=== PATIENT | female | born 1970 | race Caucasian/White ===

== ENCOUNTER 2022-04-20 11:02 | Emergency (ER) | payer OTHER ==
[~2022-04-20] VITALS: Ht 162.6 cm; Wt 90.7 kg
[2022-04-20 12:16] LABS: BASOPHILS ABSOLUTE AUTO 0.04 K/mm3 (0.00-0.23); BASOPHILS PERCENT AUTO 0 % (0-2); EOSINOPHILS ABSOLUTE AUTO 0.08 K/mm3 (0.00-0.68); EOSINOPHILS PERCENT AUTO 1 % (0-6); Hematocrit 39.2 % (33.0-51.0); Hemoglobin 13.3 g/dL (11.5-16.0); IMMATURE GRAN ABSOLUTE AUTO 0.04 K/mm3 (0.00-0.10); IMMATURE GRAN PERCENT AUTO 0 % (0-1); LYMPHOCYTES PERCENT AUTO 3 % (21-46); MONOCYTES ABSOLUTE AUTO 0.54 K/mm3 (0.16-1.47); MONOCYTES PERCENT AUTO 6 % (4-13); Mean Corpuscular HGB 30.9 pg (26.0-34.0); Mean Corpuscular HGB Conc 33.9 g/dL (31.5-36.5); Mean Corpuscular Volume 91 fL (80-100); Mean Platelet Volume 9.3 fL (9.1-12.4); NEUTROPHILS ABSOLUTE AUTO 8.38 K/mm3 (1.96-9.15); NEUTROPHILS PERCENT AUTO 89 % (41-73); Platelet Count 292 K/mm3 (150-400); RDW Coefficient Variation 13.2 % (11.7-14.2); RDW Standard Deviation 43.8 fL (35.1-46.3); White Blood Cell Count 9.38 K/mm3 (4.00-11.30)
[2022-04-20 12:41] LABS: Albumin/Globulin Ratio 1.1 (0.8-1.8); Bilirubin, Total 0.3 mg/dL (0.1-1.0); Bun/Creatinine Ratio 24.7 (12.0-20.0); Calcium, Blood 8.8 mg/dL (8.5-10.1); Creatinine, Blood 0.65 mg/dL (0.40-1.00); Globulin, Blood 3.5 g/dL (2.2-4.0); Potassium, Blood 4.3 mmol/L (3.5-5.5); Total Protein, Blood 7.5 g/dL (6.4-8.2)
[2022-04-20] MEDS ORDERED: CYCL10 PO (14:06)
== END 2022-04-20 14:14 | disposition home or self-care (01) ==
LOC: ER 11:02
PROVIDERS: Physician Assistant
DX: R51.9 Headache, unspecified (principal); Z79.899 Other long term (current) drug therapy
CPT/HCPCS: 70450; 80053; 85025; 93005; 93010; J0780; J1100; J1200; J7030

== ENCOUNTER 2022-09-11 16:08 | Emergency (ER) | payer OTHER ==
[~2022-09-11] VITALS: Ht 162.6 cm; Wt 90.7 kg
[~2022-09-11 16:08] MED LIST: CYCL10 PO
[2022-09-11 16:33] LABS: BASOPHILS ABSOLUTE AUTO 0.05 K/mm3 (0.00-0.23); BASOPHILS PERCENT AUTO 0 % (0-2); EOSINOPHILS ABSOLUTE AUTO 0.17 K/mm3 (0.00-0.68); EOSINOPHILS PERCENT AUTO 2 % (0-6); Hematocrit 38.7 % (33.0-51.0); Hemoglobin 13.3 g/dL (11.5-16.0); IMMATURE GRAN ABSOLUTE AUTO 0.06 K/mm3 (0.00-0.10); IMMATURE GRAN PERCENT AUTO 1 % (0-1); LYMPHOCYTES ABSOLUTE AUTO 3.31 K/mm3 (0.84-5.20); LYMPHOCYTES PERCENT AUTO 28 % (21-46); MONOCYTES ABSOLUTE AUTO 0.62 K/mm3 (0.16-1.47); MONOCYTES PERCENT AUTO 5 % (4-13); Mean Corpuscular HGB Conc 34.4 g/dL (31.5-36.5); Mean Corpuscular Volume 90 fL (80-100); Mean Platelet Volume 9.5 fL (9.1-12.4); NEUTROPHILS ABSOLUTE AUTO 7.45 K/mm3 (1.96-9.15); NEUTROPHILS PERCENT AUTO 64 % (41-73); Platelet Count 301 K/mm3 (150-400); RDW Coefficient Variation 13.6 % (11.7-14.2); RDW Standard Deviation 44.7 fL (35.1-46.3); Red Blood Cell Count 4.29 M/mm3 (3.80-5.20); White Blood Cell Count 11.66 K/mm3 (4.00-11.30)
[2022-09-11 16:45] LABS: International Normalized Ratio 0.93; Prothrombin Time Results 9.8 Sec (9.7-11.5)
[2022-09-11 16:53] LABS: Albumin, Blood 3.5 g/dL (3.4-5.0); Bilirubin, Total 0.1 mg/dL (0.1-1.0); Bun/Creatinine Ratio 26.2 (12.0-20.0); Calcium, Blood 8.8 mg/dL (8.5-10.1); Creatinine, Blood 0.69 mg/dL (0.40-1.00); Globulin, Blood 3.4 g/dL (2.2-4.0); Potassium, Blood 3.7 mmol/L (3.5-5.5); Total Protein, Blood 6.9 g/dL (6.4-8.2)
[2022-09-11] MEDS ORDERED: HYDR1TAB94 PO (19:22)
== END 2022-09-11 19:42 | disposition home or self-care (01) ==
LOC: ER 16:08
PROVIDERS: Student in an Organized Health Care Education/Training Program
DX: S01.81XA Laceration without foreign body of other part of head, initial encounter (principal); S01.01XA Laceration without foreign body of scalp, initial encounter; M54.2 Cervicalgia; M79.642 Pain in left hand; F17.210 Nicotine dependence, cigarettes, uncomplicated; Z88.5 Allergy status to narcotic agent; V49.49XA Driver injured in collision with other motor vehicles in traffic accident, initial encounter; Y92.411 Interstate highway as the place of occurrence of the external cause
CPT/HCPCS: 36415; 70450; 71045; 72125; 72170; 80053; 85025; 85610; 90714; 93005; 93010; A9270; J1170; J1885; J2405

== ENCOUNTER → 2022-11-09 | Outpatient (CLI) | payer OTHER ==
[~2022-11-09] MED LIST changes: +HYDR1TAB94 PO
[2022-11-19 12:09] LABS: HPV 16 Negative (Negative); HPV 18 Negative (Negative); HPV OTHER HR TYPES Negative (Negative)
== END ==
LOC: LAB 11:17 → LAB SHORT 11:17
PROVIDERS: Physician Assistant
DX: Z12.4 Encounter for screening for malignant neoplasm of cervix (principal)
CPT/HCPCS: 87624; G0145

== ENCOUNTER 2025-10-19 09:53 | Observation (INO) | payer OTHER ==
[~2025-10-19] VITALS: Ht 162.6 cm; Wt 86.4 kg
[~2025-10-19 09:53] MED LIST changes: +ACET500 PO; +IBUP600 PO; +LIDO700A20 TOP; +ONDA4 PO
[2025-10-19 10:43] LABS: Alanine Aminotransfer (ALT/SGP 213.0 U/L (12-78); Albumin, Blood 3.8 g/dL (3.4-5.0); Albumin/Globulin Ratio 1.0 (0.8-1.8); Anion Gap 14.0 mmol/L (3-11); Aspartate Aminotrans (AST/SGOT 203.0 U/L (12-37); Bilirubin, Total 1.0 mg/dL (0.1-1.0); Blood Urea Nitrogen 7.0 mg/dL (8-24); CO2, Blood 22.0 mmol/L (21-32); Calcium, Blood 9.5 mg/dL (8.5-10.1); Chloride, Blood 98.0 mmol/L (98-108); Creatinine, Blood 0.6 mg/dL (0.40-1.00); Globulin, Blood 4.0 g/dL (2.2-4.0); Glucose, Blood 96.0 mg/dL (70-99); Potassium, Blood 5.2 mmol/L (3.5-5.5); Sodium, Blood 129.0 mmol/L (136-145); Total Protein, Blood 7.8 g/dL (6.4-8.2)
[2025-10-19] MEDS ORDERED: Ondansetron HCl 2 MG / ML 2ML Vial IV ONE (10:50)
[2025-10-19] MEDS ORDERED: HYDROmorphone HCl/Pf 1MG SYR IV ONE (10:50)
[2025-10-19] MEDS ORDERED: NS 1,000 ML IV SCH ×2 (10:50→14:35)
[2025-10-19 11:20] LABS: BASOPHILS ABSOLUTE AUTO 0.06 K/mm3 (0.00-0.23); BASOPHILS PERCENT AUTO 1 % (0-2); EOSINOPHILS ABSOLUTE AUTO 0.02 K/mm3 (0.00-0.68); EOSINOPHILS PERCENT AUTO 0 % (0-6); Hematocrit 43.2 % (33.0-51.0); Hemoglobin 15.1 g/dL (11.5-16.0); IMMATURE GRAN ABSOLUTE AUTO 0.04 K/mm3 (0.00-0.10); IMMATURE GRAN PERCENT AUTO 0 % (0-1); LYMPHOCYTES ABSOLUTE AUTO 0.62 K/mm3 (0.84-5.20); LYMPHOCYTES PERCENT AUTO 6 % (21-46); MONOCYTES ABSOLUTE AUTO 0.53 K/mm3 (0.16-1.47); MONOCYTES PERCENT AUTO 5 % (4-13); Mean Corpuscular HGB Conc 35.0 g/dL (31.5-36.5); Mean Corpuscular Volume 99 fL (80-100); NEUTROPHILS ABSOLUTE AUTO 9.68 K/mm3 (1.96-9.15); NEUTROPHILS PERCENT AUTO 88 % (41-73); NRBC ABSOLUTE 0.00 K/mm3 (0.00-0.02); NRBC Auto 0.0 /100 WBC (0.0-0.2); RDW Coefficient Variation 12.9 % (11.7-14.2); RDW Standard Deviation 47.2 fL (35.1-46.3)
[2025-10-19 11:47] LABS: Platelet Count 217 K/mm3 (150-400)
[2025-10-19 12:08] LABS: Influenza A, PCR NEGATIVE (NEGATIVE); Influenza B, PCR NEGATIVE (NEGATIVE); Resp Syncytial Virus, PCR NEGATIVE (NEGATIVE); SARS-Cov-2 (COVID-19) PCR, MMC NEGATIVE (NEGATIVE)
[2025-10-19 13:50] LABS: Source, Urine Clean Catch
[2025-10-19 13:59] LABS: Bilirubin, Urine Neg (Neg); Color, Urine Yellow (P-Yellow); Glucose Qualitative, Urine Neg (Neg); Ketones, Urine 3+ (Neg); Leukocyte Esterase, Urine 3+ (Neg); Protein, Urine 2+ (Neg); Specific Gravity, Urine 1.010 (1.003-1.022); Urobilinogen, Urine NORM (Normal)
[2025-10-19 14:06] LABS: White Blood Cells, Urine TNTC /hpf (0-5)
[2025-10-19] MEDS ORDERED: CefTRIAXone Sodium 1,000 MG in NS 50 ML IV ONE (14:15)
[2025-10-19] MEDS ORDERED: PHENobarbital Sodium 65MG / ML 1ML Vial IV ONE (14:30)
[2025-10-19] MEDS ORDERED: Metoclopramide HCl 5MG / ML 2ML Vial IV PRN (15:15)
[2025-10-19] MEDS ORDERED: FLU VACC TS2025-26(6MOS UP)/PF 45 MCG/0.5 ML SYRINGE IM SCH (15:15)
[2025-10-19] MEDS ORDERED: LORazepam 2 MG/ML 1ML Injection IV PRN ×2 (15:20)
[2025-10-19] MEDS ORDERED: Ondansetron HCl 2 MG / ML 2ML Vial IV PRN (15:20)
[2025-10-19 16:52] VITALS: BP 130/76
[2025-10-19] MEDS ORDERED: NS 250 ML IV PRN (17:00)
--- NOTE | 2025-10-19 18:09 | NUR ---
Admission Note Ms Gonzalez was admitted from the ER to Medical unit at 1640hrs. She was able to stand and transfer into bed with assistance but had dizzyness when she sat and stood. She is orientated x4, conversation clear and appropriate. She denies feeling short of breath, she said she's had a cough with thick white sputum for the past week. She has 4/10 aches to hips/legs, not requiring analgesia. She is able to reposition herself in bed. She denied any nausea on admission. She is c/o feeling hungry. Tolerating clear liquids so far. CIWA 2 on arrival. She told me she drinks about 1 beer/day. No liquor. Her skin is flushed, not diaphuretic. Placed on telemetry, SR 94. She denies being on any home medications, will occasionally take ibuprofen, no other prescribed or OTC medications. Ms Gonzalez lives alone, she is independent, denies any home insecurities. Her daughter lives nearby. Bed low, call light in reach.
[2025-10-19 19:13] VITALS: BP 156/83
[2025-10-19 23:56] VITALS: BP 137/81
[2025-10-20 03:47] VITALS: BP 150/93
--- NOTE | 2025-10-20 03:51 | NUR ---
SHIFT SUMMARY: PT IS AOX4 AND IND. PT VOIDED A FEW TIMES THROUGH OUT THE SHIFT. PT SLEPT MOST OF THE NIGHT. NO ACUTE CHANGES
[2025-10-20] MEDS ORDERED: Pantoprazole Sodium 40 MG Injection IV SCH (06:00)
[2025-10-20 06:06] LABS: BASOPHILS ABSOLUTE AUTO 0.05 K/mm3 (0.00-0.23); BASOPHILS PERCENT AUTO 1 % (0-2); EOSINOPHILS ABSOLUTE AUTO 0.06 K/mm3 (0.00-0.68); EOSINOPHILS PERCENT AUTO 1 % (0-6); Hematocrit 39.0 % (33.0-51.0); Hemoglobin 13.3 g/dL (11.5-16.0); IMMATURE GRAN ABSOLUTE AUTO 0.01 K/mm3 (0.00-0.10); IMMATURE GRAN PERCENT AUTO 0 % (0-1); LYMPHOCYTES ABSOLUTE AUTO 0.88 K/mm3 (0.84-5.20); LYMPHOCYTES PERCENT AUTO 16 % (21-46); MONOCYTES ABSOLUTE AUTO 0.29 K/mm3 (0.16-1.47); MONOCYTES PERCENT AUTO 5 % (4-13); Mean Corpuscular HGB Conc 34.1 g/dL (31.5-36.5); Mean Corpuscular Volume 101 fL (80-100); NEUTROPHILS ABSOLUTE AUTO 4.13 K/mm3 (1.96-9.15); NEUTROPHILS PERCENT AUTO 76 % (41-73); NRBC ABSOLUTE 0.00 K/mm3 (0.00-0.02); NRBC Auto 0.0 /100 WBC (0.0-0.2); Platelet Count 163 K/mm3 (150-400); RDW Coefficient Variation 12.8 % (11.7-14.2); RDW Standard Deviation 48.1 fL (35.1-46.3)
[2025-10-20 06:40] LABS: Anion Gap 9.0 mmol/L (3-11); Blood Urea Nitrogen 5.0 mg/dL (8-24); CO2, Blood 28.0 mmol/L (21-32); Calcium, Blood 8.6 mg/dL (8.5-10.1); Chloride, Blood 100.0 mmol/L (98-108); Creatinine, Blood 0.58 mg/dL (0.40-1.00); Glucose, Blood 83.0 mg/dL (70-99); Potassium, Blood 3.3 mmol/L (3.5-5.5); Sodium, Blood 134.0 mmol/L (136-145)
[2025-10-20 07:12] VITALS: BP 142/114
[2025-10-20] MEDS ORDERED: Enoxaparin 40 MG/0.4 ML SYR SC SCH (09:00)
[2025-10-20] MEDS ORDERED: CefTRIAXone Sodium 1,000 MG in NS 100 ML IV SCH (09:00)
[2025-10-20 11:28] VITALS: BP 135/87
[2025-10-20] MEDS ORDERED: NICODERM CQ1 EA11 TOP (14:13)
[2025-10-20] MEDS ORDERED: ONDA4ODT MM (14:13)
[2025-10-20] MEDS ORDERED: CEPH500 PO (14:13)
[2025-10-20] MEDS ORDERED: VISBIOME 112.51 EACH PO (14:14)
--- NOTE | 2025-10-20 18:14 | NUR ---
DISCHARGE NOTE PATIENT DISCHARGE TO HOME AT 1510. ALERT AND ORIENTEDX4, VOIDING AND TOLERATING PO. PRINTED AND REVIEWED DISCHARGE INSTRUCTIONS WITH PATIENT, VERBALIZED UNDERSTANDING. PATIENT DENIES ADDITIONAL QUESTIONS OR CONCERNS. FAXED MED LIST TO [facility]. D/C D IV. PATIENT ESCORTED PATIENT BY FAMILY MEMBER VIA WHEELCHAIR.
== END 2025-10-20 17:39 | disposition home or self-care (01) ==
LOC: ER 09:53 → MEDS 09:54
PROVIDERS: Emergency Medicine; ADMIT Family Medicine
DX: R11.2 Nausea with vomiting, unspecified (principal); R79.89 Other specified abnormal findings of blood chemistry; E87.1 Hypo-osmolality and hyponatremia; R00.0 Tachycardia, unspecified; I44.0 Atrioventricular block, first degree; F10.239 Alcohol dependence with withdrawal, unspecified; N39.0 Urinary tract infection, site not specified
CPT/HCPCS: 36415; 71046; 76705; 80048; 80053; 80320; 81001; 82947; 83605; 83690; 84484; 85025; 87040; 87077; 87086; 87186; 87637; 93005; 93010; 96361; 96365; 96367; 96372; 96375; 96376; 99285-25; A9270; G0378; J0696; J1171; J1650; J2405; J2470; J2560; J3411; J7030; J7050